=== PATIENT | male | born 1980 | race Caucasian/White ===

== ENCOUNTER 2019-12-04 19:00 | Emergency (ER) | payer SELFPAY ==
--- NOTE | 2019-12-04 19:03 | ERPHSYRPT ---
- History of Present Illness Time Seen by Provider: 12/04/19 19:03 Source: patient, EMS Exam Limitations: clinical condition Physician History: 39-year-old white male who was brought in by EMS escorted by police department because of this patient having altered mental status at home while working on cars. He was very aggressive and verbal at the scene. Friends state that he was fine until he fell backwards and hit his head. There is difficult to get a good history from him since he is lethargic. He is arousable but becomes agitated. He does admit, in the emergency department, to using marijuana and methamphetamines. Timing/Duration: today Severity: moderate Baseline/Normal Cognition: alert oriented x 3 Current Cognition: poor alertness Baseline Gait: walks w/o assistance Associated Symptoms: confusion, other (Dictated) Allergies/Adverse Reactions: UNOBTAINABLE Allergy (Unverified 12/04/19 19:12) Travel Risk - International Travel Have you traveled outside of the country in past 3 weeks: No - Coronavirus Screening Are you exhibiting any of the following symptoms?: No Close contact with a COVID-19 positive Pt in past 14-21 Days: No - Review of Systems Constitutional: No Symptoms Eyes: No Symptoms Ears, Nose, & Throat: No Symptoms Respiratory: No Symptoms Cardiac: No Symptoms Abdominal/Gastrointestinal: No Symptoms Genitourinary Symptoms: No Symptoms Musculoskeletal: No Symptoms Skin: Other (Abscess left shoulder) Neurological: Lethargy Psychological: Drug Abuse Endocrine: No Symptoms Hematologic/Lymphatic: No Symptoms Immunological/Allergic: No Symptoms All Other Systems: Reviewed and Negative - Past Medical History Pertinent Past Medical History: Yes Neurological History: No Pertinent History ENT History: No Pertinent History Cardiac History: No Pertinent History Respiratory History: No Pertinent History Endocrine Medical History: No Pertinent History Musculoskeletal History: No Pertinent History GI Medical History: No Pertinent History History: No Pertinent History Psycho-Social History: No Pertinent History Male Reproductive Disorders: No Pertinent History - Past Surgical History Past Surgical History: Yes Neuro Surgical History: No Pertinent History Cardiac: No Pertinent History Respiratory: No Pertinent History Gastrointestinal: No Pertinent History Genitourinary: No Pertinent History Musculoskeletal: No Pertinent History Male Surgical History: No Pertinent History - Nursing Vital Signs Nursing Vital Signs: Initial Vital Signs O2 Sat by Pulse Oximetry 95 12/04/19 19:12 Pain Scale Pain Intensity 0 - Barbara Coma Scale Best Eye Response (Dyess): (2) open to pain Best Verbal Response (Barbara): (4) confused conversation Best Motor Response (Barbara): (5) localizes to pain Dyess Total: 11 - Physical Exam General Appearance: lethargy Eye Exam: bilateral eye: PERRL, EOMI, other (Dilated pupils) Ears, Nose, Throat Exam: normal ENT inspection, moist mucous membranes Neck Exam: normal inspection, non-tender, supple, full range of motion Respiratory: normal breath sounds, lungs clear, airway intact, No chest tenderness, No respiratory distress Cardiovascular: regular rate/rhythm, normal heart sounds, normal peripheral pulses Gastrointestinal: soft, normal bowel sounds, No tenderness Rectal Exam: not done Back Exam: normal inspection, normal range of motion, No CVA tenderness, No vertebral tenderness Extremity Exam: other (Several track vazquez bilateral upper extremities. 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 No cellulitis present. Several small eschar sites bilateral upper extremities in the antecubital fossa region.) SpO2 Interpretation: normal O2 Delivery: Room Air Ordered Tests: Active Orders 24 hr Category Date Time Status E D Tech STAT Care 12/04/19 19:09 Active Cath for Specimen-Straight STAT Care 12/04/19 19:09 Active EKG-ER Only STAT Care 12/04/19 19:08 Active IV Insertion STAT Care 12/04/19 19:08 Active NPO (ED) STAT Care 12/04/19 19:08 Active Pulse Oximetry (ED) STAT Care 12/04/19 19:08 Active HEAD WITHOUT CONTRAST [CT] Stat Exams 12/04/19 19:08 Taken ACETAMINOPHEN Stat Lab 12/04/19 19:23 Completed CBC W DIFF Stat Lab 12/04/19 19:23 Completed CMP Stat Lab 12/04/19 19:23 Completed ETHYL ALCOHOL Stat Lab 12/04/19 19:23 Completed Lactic Acid Stat Lab 12/04/19 20:00 Completed SALICYLATE Stat Lab 12/04/19 19:23 Completed UA W/RFX UR CULTURE Stat Lab 12/04/19 19:26 Completed Urine Triage Profile Stat Lab 12/04/19 19:26 Completed Medication Summary Discontinued Medications Generic Name Dose Route Start Last Admin Trade Name Freq PRN Reason Stop Dose Admin Sodium Chloride 1,000 mls @ 999 mls/hr 12/04/19 19:08 12/04/19 20:53 Sodium Chloride 0.9% 1000 Ml IV 12/04/19 20:08 Infused .Q1H1M STA Infusion Sodium Chloride Confirm 12/04/19 19:31 Sodium Chloride 0.9% 1000 Ml Administered 12/04/19 19:32 Dose 1,000 mls @ ud .ROUTE .STK-MED ONE Lorazepam 2 mg 12/04/19 19:10 Ativan 2 Mg/1 Ml Vial IV 12/04/19 19:11 STAT ONE Naloxone HCl 0.4 mg 12/04/19 19:17 Narcan 0.4 Mg/Ml IV 12/04/19 19:18 STAT ONE Ondansetron HCl 4 mg 12/04/19 19:17 12/04/19 19:42 Zofran 4 Mg/2 Ml Vial IV 12/04/19 19:18 4 mg STAT ONE Administration Ondansetron HCl Confirm 12/04/19 19:30 Zofran 4 Mg/2 Ml Vial Administered 12/04/19 19:31 Dose 4 mg .ROUTE .STK-MED ONE Lab/Rad Data: Laboratory Result Diagrams 12/04/19 19:23 12/04/19 19:23 Laboratory Results 12/04/19 12/04/19 12/04/19 Range/Units 20:00 19:26 19:26 WBC (4.0-10.5) K/mm3 RBC (4.1-5.6) M/mm3 Hgb (12.5-18.0) gm/dl Hct (42-50) % MCV (78-100) fl MCH (26-32) pg MCHC (32-36) g/dl RDW (11.5-14.0) % Plt Count (150-450) K/mm3 MPV (7.5-11.0) fl Gran % (36.0-66.0) % Eos # (Auto) (0-0.5) Absolute Lymphs (auto) (1.0-4.6) Absolute Monos (auto) (0.0-1.3) Lymphocytes % (24.0-44.0) % Monocytes % (0.0-12.0) % Eosinophils % (0.00-5.0) % Basophils % (0.0-0.4) % Absolute Granulocytes (1.4-6.9) Basophils # (0-0.4) Sodium (137-145) mmol/L Potassium (3.5-5.1) mmol/L Chloride (98-107) mmol/L Carbon Dioxide (22-30) mmol/L Anion Gap (5-15) MEQ/L BUN (9-20) mg/dL Creatinine (0.66-1.25) mg/dL Estimated GFR ML/MIN Glucose (74-106) mg/dL Lactic Acid 1.6 (0.4-2.0) Calcium (8.4-10.2) mg/dL Total Bilirubin (0.2-1.3) mg/dL AST (17-59) U/L ALT (0-50) U/L Alkaline Phosphatase (38-126) U/L Serum Total Protein (6.3-8.2) g/dL Albumin (3.5-5.0) g/dL Urine Color YELLOW (YELLOW) Urine Appearance CLEAR (CLEAR) Urine pH 5.0 (5-6) Ur Specific Chester 1.026 (1.005-1.025) Urine Protein NEGATIVE (Negative) Urine Ketones NEGATIVE (NEGATIVE) Urine Blood NEGATIVE (0-5) Eladio/ul Urine Nitrite NEGATIVE (NEGATIVE) Urine Bilirubin NEGATIVE (NEGATIVE) Urine Urobilinogen 2 (0-1) mg/dL Ur Leukocyte Esterase NEGATIVE (NEGATIVE) Urine WBC (Auto) 0-2 (0-5) /HPF Urine RBC (Auto) 0-2 (0-2) /HPF U Epithel Cells (Auto) NONE (FEW) /HPF Urine Bacteria (Auto) RARE (NEGATIVE) /HPF Urine Mucus (Auto) SLIGHT (NEGATIVE) /HPF Urine Culture Reflexed NO (NO) Urine Glucose 50 (NEGATIVE) mg/dL Salicylates (2-20) mg/dL Urine Opiates Level NEGATIVE (NEGATIVE) Ur Methadone NEGATIVE (NEGATIVE) Acetaminophen (10-30) ug/ml Urine Barbiturates NEGATIVE (NEGATIVE) Ur Phencyclidine (PCP) NEGATIVE (NEGATIVE) Urine Amphetamine POSITIVE (NEGATIVE) U Benzodiazepine Level NEGATIVE (NEGATIVE) Urine Cocaine NEGATIVE (NEGATIVE) Urine Marijuana (THC) POSITIVE (NEGATIVE) Ethyl Alcohol (0-10) mg/dL 08/01/1412/04/19 12/04/19 Range/Units 19:23 19:23 19:23 WBC 9.2 (4.0-10.5) K/mm3 RBC 4.64 (4.1-5.6) M/mm3 Hgb 14.9 (12.5-18.0) gm/dl Hct 45.3 (42-50) % MCV 97.6 (78-100) fl MCH 32.1 H (26-32) pg MCHC 32.9 (32-36) g/dl RDW 13.7 (11.5-14.0) % Plt Count 334 (150-450) K/mm3 MPV 9.9 (7.5-11.0) fl Gran % 62.4 (36.0-66.0) % Eos # (Auto) 0.35 (0-0.5) Absolute Lymphs (auto) 2.17 (1.0-4.6) Absolute Monos (auto) 0.87 (0.0-1.3) Lymphocytes % 23.5 L (24.0-44.0) % Monocytes % 9.4 (0.0-12.0) % Eosinophils % 3.8 (0.00-5.0) % Basophils % 0.9 (0.0-0.4) % Absolute Granulocytes 5.77 (1.4-6.9) Basophils # 0.08 (0-0.4) Sodium 138 (137-145) mmol/L Potassium 4.0 (3.5-5.1) mmol/L Chloride 106 (98-107) mmol/L Carbon Dioxide 27 (22-30) mmol/L Anion Gap 9.0 (5-15) MEQ/L BUN 15 (9-20) mg/dL Creatinine 0.60 L (0.66-1.25) mg/dL Estimated GFR > 60.0 ML/MIN Glucose 145 H (74-106) mg/dL Lactic Acid (0.4-2.0) Calcium 9.1 (8.4-10.2) mg/dL Total Bilirubin 0.40 (0.2-1.3) mg/dL AST 50 (17-59) U/L ALT 55 H (0-50) U/L Alkaline Phosphatase 106 (38-126) U/L Serum Total Protein 7.0 (6.3-8.2) g/dL Albumin 3.8 (3.5-5.0) g/dL Urine Color (YELLOW) Urine Appearance (CLEAR) Urine pH (5-6) Ur Specific Chester (1.005-1.025) Urine Protein (Negative) Urine Ketones (NEGATIVE) Urine Blood (0-5) Eladio/ul Urine Nitrite (NEGATIVE) Urine Bilirubin (NEGATIVE) Urine Urobilinogen (0-1) mg/dL Ur Leukocyte Esterase (NEGATIVE) Urine WBC (Auto) (0-5) /HPF Urine RBC (Auto) (0-2) /HPF U Epithel Cells (Auto) (FEW) /HPF Urine Bacteria (Auto) (NEGATIVE) /HPF Urine Mucus (Auto) (NEGATIVE) /HPF Urine Culture Reflexed (NO) Urine Glucose (NEGATIVE) mg/dL Salicylates < 1.0 L (2-20) mg/dL Urine Opiates Level (NEGATIVE) Ur Methadone (NEGATIVE) Acetaminophen < 10 L (10-30) ug/ml Urine Barbiturates (NEGATIVE) Ur Phencyclidine (PCP) (NEGATIVE) Urine Amphetamine (NEGATIVE) U Benzodiazepine Level (NEGATIVE) Urine Cocaine (NEGATIVE) Urine Marijuana (THC) (NEGATIVE) Ethyl Alcohol < 10 (0-10) mg/dL - Progress Progress: improved Progress Note: 12/04/19 20:37 CAT scan of the head reveals no acute intracranial findings. 12/04/19 21:32 Patient reexamined. Patient moving all his extremities. Patient is arousable still little sleepy. He is able to have a conversation. He is oriented x3. Plan for him is to give him IV Rocephin to treat his abscess of the left shoulder. We will then have him up walking ambulating and drinking fluids then discharge him to home with oral antibiotics. Counseled pt/family regarding: lab results, diagnosis, need for follow-up, rad results - Departure Departure Disposition: Home Clinical Impression: Altered mental status, Methamphetamine abuse, Drug abuse, marijuana Condition: Stable Critical Care Time: No Referrals: TERRANCE MCKENNA MD [Primary Care Provider] - Additional Instructions: Drink plenty of fluids at home. Avoid all mind altering substances and drugs. Use Tylenol and ibuprofen for pain control. Take your antibiotics as prescribed. Prescriptions: Smz/Tmp Ds Tablet [Bactrim Ds Tablet] 1 udtab PO BID #14 tablet
[2019-12-04] MEDS ORDERED: Sodium Chloride 0.9% 1000 ML 1,000 ML IV STA (19:08)
[2019-12-04] MEDS ORDERED: Ativan 2 MG/1 ML VIAL IV ONE (19:10)
[2019-12-04] MEDS ORDERED: Zofran 4 MG/2 ML VIAL IV ONE (19:17)
[2019-12-04] MEDS ORDERED: Narcan 0.4 MG/ML IV ONE (19:17)
[2019-12-04 19:26] LABS: Absolute Neutrophil Ct (ANC) 5.77 (1.4-6.9); BASOPHIL % 0.9 % (0.0-0.4); Basophil (Absolute #) 0.08 (0-0.4); Eosinophil % 3.8 % (0.00-5.0); Eosinophil (Absolute #) 0.35 (0-0.5); Hematocrit 45.3 % (42-50); Hemoglobin 14.9 gm/dl (12.5-18.0); Lymphocyte (Absolute #) 2.17 (1.0-4.6); Lymphocytes % 23.5 % (24.0-44.0); Mean Cell Volume 97.6 fl (78-100); Mean Corpuscular Hemoglobin 32.1 pg (26-32); Mean Corpuscular Hgb Concent. 32.9 g/dl (32-36); Mean Platelet Volume 9.9 fl (7.5-11.0); Monocyte (Absolute #) 0.87 (0.0-1.3); Monocytes % 9.4 % (0.0-12.0); Neutrophil % 62.4 % (36.0-66.0); Platelet Count 334 K/mm3 (150-450); Red Blood Count 4.64 M/mm3 (4.1-5.6); Red Cell Distribution Width 13.7 % (11.5-14.0); White Blood Count 9.2 K/mm3 (4.0-10.5)
[2019-12-04] MEDS ORDERED: Zofran 4 MG/2 ML VIAL ONE (19:30)
[2019-12-04] MEDS ORDERED: Sodium Chloride 0.9% 1000 ML 1,000 ML ONE (19:31)
[2019-12-04 19:36] LABS: Appearance CLEAR (CLEAR); Bacteria RARE /HPF (NEGATIVE); Bilirubin NEGATIVE (NEGATIVE); Blood NEGATIVE Ery/ul (0-5); Glucose 50 mg/dL (NEGATIVE); Ketones NEGATIVE (NEGATIVE); Leukocyte Esterase NEGATIVE (NEGATIVE); Mucus SLIGHT /HPF (NEGATIVE); Nitrite NEGATIVE (NEGATIVE); Protein,Urine Dip NEGATIVE (Negative); RBC 0-2 /HPF (0-2); Specific Gravity 1.026 (1.005-1.025); Urobilinogen 2 mg/dL (0-1); WBC 0-2 /HPF (0-5)
[2019-12-04 19:37] LABS: ALBUMIN 3.8 g/dL (3.5-5.0); ALKALINE PHOSPHATASE 106 U/L (38-126); BLOOD UREA NITROGEN 15 mg/dL (9-20); CHLORIDE 106 mmol/L (98-107); Calcium 9.1 mg/dL (8.4-10.2); Carbon Dioxide 27 mmol/L (22-30); Glucose 145 mg/dL (74-106); SGOT/AST 50 U/L (17-59); SGPT/ALT 55 U/L (0-50); SODIUM 138 mmol/L (137-145)
[2019-12-04 19:38] LABS: ACETAMINOPHEN < 10 ug/ml (10-30); SALICYLATE < 1.0 mg/dL (2-20)
[2019-12-04 19:45] LABS: Barbiturate,Urine NEGATIVE (NEGATIVE); Benzodiazepine,Urine NEGATIVE (NEGATIVE); Cocaine,Urine NEGATIVE (NEGATIVE); Methadone,Urine NEGATIVE (NEGATIVE); Opiate,Urine NEGATIVE (NEGATIVE); PCP,Urine NEGATIVE (NEGATIVE); THC,Urine POSITIVE (NEGATIVE)
[2019-12-04 20:00] LABS: Amphetamine,Urine POSITIVE (NEGATIVE)
[2019-12-04] MEDS ORDERED: ROCEPHIN 1 Gm-D5w 50 ml Bag** 1 G/50 ML IVPB IV STA (21:35)
[2019-12-04] MEDS ORDERED: ROCEPHIN 1 Gm-D5w 50 ml Bag** 1 G/50 ML IVPB IV ONE (21:37)
[2019-12-04 22:55] VITALS: BP 122/80; PULSE 68; O2SAT 95
--- NOTE | 2019-12-05 12:55 | XRAY ---
Exam: CT of the head without IV contrast from 12/04/2019. CTDI: 53.92 mGy Comparison: None. Indication: 39-year-old male fell backwards striking head, altered mental status, currently lethargic; positive history of substance abuse. Technique: Non-IV contrast axial images were obtained through the brain. Reconstructed coronal and sagittal images were created and reviewed. Findings: The patient's head is mildly tilted toward the right within the CT gantry. The ventricles are of normal size. No focal mass effect or midline shift is seen. No acute intracranial bleed or abnormal extra-axial fluid collection is seen. The hernández matter-white matter junctions appear unremarkable. No low attenuation cortical infarct is seen. The cortical sulci and basilar cisterns appear unremarkable. I see no evidence of skull fracture or other calvarial lesion. On axial image #49, there is some subtle increased soft tissue density within the left frontal scalp. Correlate clinically regarding edema or an abrasion at this site. The paranasal sinuses reveal minimal scattered mucoperiosteal thickening within the ethmoid sinuses. No air-fluid levels are seen. The remainder of the paranasal sinuses appears clear. The orbits appear unremarkable. The mastoid air cells are clear without effusion. The middle ear cavities appear grossly unremarkable. Impression: 1. No acute intracranial bleed or other acute intracranial process is seen. 2. Other incidental findings, as discussed above.
== END 2019-12-04 22:56 | disposition home or self-care (01) ==
LOC: ED 19:00
DX: R41.82 Altered mental status, unspecified (principal); F15.10 Other stimulant abuse, uncomplicated; F12.10 Cannabis abuse, uncomplicated
CPT/HCPCS: 36000; 36415; 70450; 80053; 80307; 81001; 83605; 85025; 93005; 93041; 94760; 96360; 96365; 96374; 99285; P9612; J0696; J2405; G0480

== ENCOUNTER 2020-09-12 18:42 | Emergency (ER) | payer OTHER ==
--- NOTE | 2020-09-12 19:17 | ERPHSYRPT ---
- History of Present Illness Source: patient, other (Police/Guards) Exam Limitations: other (Pt uncooperative w Hx/Exam/Labs/UA) Patient Subjective Stated Complaint: "whole body hurts, I want to sleep" Triage Nursing Assessment: Patient to ED by [facility] from [facility] with cc of withdrawal. Pt reports last drug (spice and meth) use yesterday. Taken to half-way today. Symptoms started just prior to arrival to ED. Pt A & OX3, answers some questions, but writhing in bed. Pt diaphoretic, slightly tachycardic. Allows staff to obtain vitals, but refused to let medics start IV. GCS 15. Respirations even, unlabored. Physician History: 40 yo wm arrested today for substance abuse with meth/marijuana presents from half-way for agitation. Pt with good airway/alert/oriented x3. Pt refusing all medical care, including EKG/Labwork/UA. Timing/Duration: other (Chronic substance abuse) Associated Symptoms: No nausea, No vomiting, No abdominal pain, No shortness of breath, No heartburn, No diaphoresis, No cough, No chills, No chest pain, No fever, No headaches, No loss of appetite, No malaise, No rash, No syncope, No seizure Allergies/Adverse Reactions: UNOBTAINABLE Allergy (Unverified 12/04/19 19:12) Hx Influenza Vaccination/Date Given: No Hx Pneumococcal Vaccination/Date Given: No Travel Risk - International Travel Have you traveled outside of the country in past 3 weeks: No - Coronavirus Screening Are you exhibiting any of the following symptoms?: No Close contact with a COVID-19 positive Pt in past 14-21 Days: No - Vaccine Status Have you recieved a Covid-19 vaccination: No - Review of Systems All Other Systems: Unable due to condition (Pt uncooperative) - Past Medical History Pertinent Past Medical History: Yes Neurological History: No Pertinent History ENT History: No Pertinent History Cardiac History: No Pertinent History Respiratory History: No Pertinent History Endocrine Medical History: No Pertinent History Musculoskeletal History: No Pertinent History GI Medical History: No Pertinent History History: No Pertinent History Psycho-Social History: No Pertinent History Male Reproductive Disorders: No Pertinent History - Past Surgical History Past Surgical History: Yes Neuro Surgical History: No Pertinent History Cardiac: No Pertinent History Respiratory: No Pertinent History Gastrointestinal: No Pertinent History Genitourinary: No Pertinent History Musculoskeletal: No Pertinent History Male Surgical History: No Pertinent History - Social History Smoking Status: Unknown if ever smoked Exposure to second hand smoke: No Drug Use: marijuana, methamphetamines Patient Lives Alone: No (at half-way) Significant Family History: no pertinent family hx - Nursing Vital Signs Nursing Vital Signs: Initial Vital Signs Temperature 97.5 F 09/12/20 18:45 Pulse Rate 97 H 09/12/20 18:45 Respiratory Rate 22 09/12/20 18:45 Blood Pressure 115/90 09/12/20 18:45 O2 Sat by Pulse Oximetry 97 09/12/20 18:45 Pain Scale Pain Intensity 6 - Physical Exam General Appearance: alert Eye Exam: PERRL/EOMI, eyes nml inspection Ears, Nose, Throat Exam: normal ENT inspection, TMs normal, pharynx normal (Very poor dentition) Neck Exam: normal inspection, non-tender, supple Respiratory Exam: normal breath sounds, lungs clear, airway intact, No respiratory distress Cardiovascular Exam: regular rate/rhythm, normal heart sounds, normal peripheral pulses Gastrointestinal/Abdomen Exam: soft, normal bowel sounds, No tenderness Back Exam: normal inspection, normal range of motion, No CVA tenderness Extremity Exam: normal inspection, normal range of motion, pelvis stable Neurologic Exam: alert, oriented x 3, choir accompanist II-XII nml as tested (Pt uncooperative w exam) Skin Exam: normal color, warm, dry Lymphatic Exam: No adenopathy SpO2 Interpretation: normal SpO2: 97 O2 Delivery: Room Air - Course Nursing assessment & vital signs reviewed: Yes Ordered Tests: Active Orders 24 hr Category Date Time Status EKG-ER Only STAT Care 09/12/20 18:55 Completed - Progress Progress Note: 09/12/20 21:25 Pt alert/oriented x3 during entire stay/great airway/Pt refused all labs,UA,EKG during stay. AMA signed by pt. Pt discharged in care of speech language specialist. - Departure Departure Disposition: AMA Clinical Impression: Substance abuse Condition: Stable Critical Care Time: No Referrals: TERRANCE MCKENNA MD [Primary Care Provider] -
[2020-09-12 19:30] VITALS: BP 135/90; PULSE 84
[2020-09-12 21:27] VITALS: O2SAT 97
== END 2020-09-12 19:28 | disposition left against medical advice (07) ==
LOC: ED 18:42
DX: F19.10 Other psychoactive substance abuse, uncomplicated (principal)
CPT/HCPCS: 99283

== ENCOUNTER 2021-03-26 09:01 | Emergency (ER) | payer OTHER ==
--- NOTE | 2021-03-26 09:17 | ERPHSYRPT ---
- History of Present Illness Time Seen by Provider: 03/26/21 09:17 Source: patient Exam Limitations: no limitations Patient Subjective Stated Complaint: here for swelling and and reddness to lower right leg for 4-5 days now Triage Nursing Assessment: pt alert, jerking movements, resp easy, face mask in place, resp easy, skin w/d/p, has swelling,reddness with ulcer to lower leg with drainage Physician History: This is a 40-year-old white male abuser of methamphetamines which he smokes daily. He presents with 4 to 5-day history of right lower leg redness and swelling. It is in the anterior aspect of his right lower leg with an ulceration present. Patient denies fever. He denies injecting anything into this area. He is not on any medication and has no known drug allergies. He is disheveled and not well kept. Method of Injury: unknown Quality: constant Severity of Pain-Max: mild Severity of Pain-Current: mild Lower Extremities Pain: leg: right (Mild with associated redness right anteromedial aspect) Modifying Factors: Improves With: nothing Associated Symptoms: none Allergies/Adverse Reactions: No Known Drug Allergies Allergy (Unverified 03/26/21 09:12) Hx Tetanus, Diphtheria Vaccination/Date Given: No Hx Influenza Vaccination/Date Given: No Hx Pneumococcal Vaccination/Date Given: No Immunizations Up to Date: Yes Travel Risk - International Travel Have you traveled outside of the country in past 3 weeks: No - Coronavirus Screening Are you exhibiting any of the following symptoms?: No Close contact with a COVID-19 positive Pt in past 14-21 Days: No - Vaccine Status Have you recieved a Covid-19 vaccination: No - Review of Systems Constitutional: No Symptoms Eyes: No Symptoms Ears, Nose, & Throat: No Symptoms Respiratory: No Symptoms Cardiac: No Symptoms Abdominal/Gastrointestinal: No Symptoms Genitourinary Symptoms: No Symptoms Musculoskeletal: No Symptoms Skin: Cellulitis (Right lower leg) Neurological: No Symptoms Psychological: No Symptoms Endocrine: No Symptoms Hematologic/Lymphatic: No Symptoms Immunological/Allergic: No Symptoms All Other Systems: Reviewed and Negative - Past Medical History Pertinent Past Medical History: Yes Neurological History: No Pertinent History ENT History: No Pertinent History Cardiac History: No Pertinent History Respiratory History: No Pertinent History Endocrine Medical History: No Pertinent History Musculoskeletal History: No Pertinent History GI Medical History: No Pertinent History History: No Pertinent History Psycho-Social History: No Pertinent History Male Reproductive Disorders: No Pertinent History - Past Surgical History Past Surgical History: Yes Neuro Surgical History: No Pertinent History Cardiac: No Pertinent History Respiratory: No Pertinent History Gastrointestinal: No Pertinent History Genitourinary: No Pertinent History Musculoskeletal: No Pertinent History Male Surgical History: No Pertinent History - Social History Smoking Status: Current every day smoker Exposure to second hand smoke: Yes Drug Use: marijuana, methamphetamines Patient Lives Alone: No Significant Family History: no pertinent family hx - Nursing Vital Signs Nursing Vital Signs: Initial Vital Signs Temperature 98.8 F 03/26/21 09:13 Pulse Rate 85 03/26/21 09:13 Respiratory Rate 18 03/26/21 09:13 Blood Pressure 143/87 03/26/21 09:13 O2 Sat by Pulse Oximetry 98 03/26/21 09:13 Pain Scale Pain Intensity 7 - Physical Exam General Appearance: no apparent distress, alert Eyes, Ears, Nose, Throat Exam: normal ENT inspection, moist mucous membranes Neck Exam: normal inspection, non-tender, supple, full range of motion Cardiovascular/Respiratory Exam: chest non-tender, no respiratory distress Gastrointestinal/Abdominal Exam: non-tender Back Exam: normal inspection, normal range of motion, No CVA tenderness, No vertebral tenderness Hips Exam: bilateral: non-tender, normal inspection, normal range of motion, no evidence of injury Legs Exam: right leg: pain (Mild), soft tissue tenderness, swelling, other (Right lower leg anterior medial aspect), left leg: non-tender, normal inspection, no evidence of injury, bilateral leg: normal range of motion Knees Exam: bilateral knee: non-tender, normal inspection, normal range of motion, no evidence of injury Ankle Exam: bilateral ankle: other (See lower leg above description) Foot Exam: bilateral foot: non-tender, normal inspection, normal range of motion, no evidence of injury Neuro/Tendon Exam: normal sensation, normal motor functions, normal tendon functions, responds to pain Mental Status Exam: alert, oriented x 3, cooperative, intoxicated appearance Skin Exam: other (Cellulitis right lower leg anterior medial aspect) SpO2 Interpretation: normal SpO2: 98 O2 Delivery: Room Air - Course Nursing assessment & vital signs reviewed: Yes Ordered Tests: Active Orders 24 hr Category Date Time Status LOWER LEG Stat Exams 03/26/21 09:18 Completed CULTURE,WOUND Stat Lab 03/26/21 09:19 Ordered Medication Summary Discontinued Medications Generic Name Dose Route Start Last Admin Trade Name Cara PRN Reason Stop Dose Admin Ceftriaxone Sodium 1,000 mg 03/26/21 09:32 03/26/21 09:41 Ceftriaxone Sodium 1000 Mg Inj Vial IM 03/26/21 09:33 1,000 mg STAT ONE Administration Ceftriaxone Sodium Confirm 03/26/21 09:40 Ceftriaxone Sodium 1000 Mg Inj Vial Administered 03/26/21 09:41 Dose 1,000 mg .ROUTE .STK-MED ONE Lidocaine HCl Confirm 03/26/21 09:40 Lidocaine Hcl 1% 20 Ml Mdv 20 Ml Ml Administered 03/26/21 09:41 Dose 3 ml .ROUTE .STK-MED ONE Trimethoprim/Sulfamethoxazole 1 tab 03/26/21 09:32 03/26/21 09:41 Smz/Tmp Ds Tablet 1 Tablet PO 03/26/21 09:33 1 tab STAT ONE Administration Trimethoprim/Sulfamethoxazole Confirm 03/26/21 09:40 Smz/Tmp Ds Tablet 1 Tablet Administered 03/26/21 09:41 Dose 1 tab PO .STK-MED ONE - Progress Progress: unchanged Progress Note: 03/26/21 09:48 X-ray of right lower leg shows no foreign body and there are no radiographic signs of osteomyelitis. Counseled pt/family regarding: diagnosis, need for follow-up, rad results - Departure Departure Disposition: Home Clinical Impression: Cellulitis of right lower leg, Methamphetamine abuse Condition: Stable Critical Care Time: No Referrals: TERRANCE MCKENNA MD [Primary Care Provider] - Follow up/PCP as directed Additional Instructions: Keep the area clean daily with soap and water. Take your antibiotics as prescribed. Follow-up with your primary care physician for further management. Return to the emergency department if your symptoms worsen. Prescriptions: Smz/Tmp Ds Tablet [Bactrim Ds Tablet] 1 udtab PO BID #14 tablet
[2021-03-26] MEDS ORDERED: BACTRIM DS TABLET PO ONE ×2 (09:32→09:40)
[2021-03-26] MEDS ORDERED: Rocephin 1000 MG INJ IM ONE (09:32)
[2021-03-26] MEDS ORDERED: Rocephin 1000 MG INJ ONE (09:40)
[2021-03-26] MEDS ORDERED: XYLOCAINE 1% HCL 20 ML MDV ONE (09:40)
--- NOTE | 2021-03-26 09:44 | XRAY ---
Indication: Infected ulcer. Swelling and erythema. Comparison: None 2 view right lower leg obtained with distal anterior medial cutaneous BB placed over region of interest. Tiny heel spurs and moderate ankle soft tissue swelling/edema. No other bony, articular, or soft tissue abnormalities.
[2021-03-26 10:06] VITALS: BP 135/87; PULSE 93; O2SAT 95
== END 2021-03-26 10:06 | disposition home or self-care (01) ==
LOC: ED 09:01
DX: L03.115 Cellulitis of right lower limb (principal); M79.661 Pain in right lower leg; F15.10 Other stimulant abuse, uncomplicated; Z72.0 Tobacco use
CPT/HCPCS: 73590; 87070; 96372; 99284; J0696; A9270-GY